=== PATIENT | female | born 1955 | race Hispanic/Latino ===

== ENCOUNTER 2020-04-27 06:41 | Day surgery (SDC) | payer MEDICARE ==
[2020-04-27] MEDS ORDERED: ASPIRIN EC 325 MG TAB PO NR (06:59)
[2020-04-27] MEDS ORDERED: SODIUM CHLORIDE 0.9% 500 ML 500 ML IV SCH (07:00)
[2020-04-27 07:20] LABS: Basophils # (Auto) 0.1 K/mm3 (0.0-0.1); Eosinophils # (Auto) 0.1 K/mm3 (0.0-0.4); Eosinophils % (Auto) 1.4 % (0.0-4.3); Hemoglobin 13.1 gm/dl (10.1-14.3); Lymphocytes # (Auto) 1.8 K/mm3 (1.2-5.4); Lymphocytes % (Auto) 23.5 % (13.4-35.0); Mean Corpuscular HGB Conc 35 % (30-34); Mean Corpuscular Volume 94 fl (79-97); Monocytes # (Auto) 0.5 K/mm3 (0.0-0.8); Monocytes % (Auto) 7.1 % (0.0-7.3); Platelet Count 257 K/mm3 (140-440); Red Blood Count 3.96 M/mm3 (3.65-5.03); Red Cell Distribution Width 13.1 % (13.2-15.2)
[2020-04-27 07:30] LABS: INR 0.87 (0.87-1.13)
[2020-04-27 07:31] LABS: Calcium 9.6 mg/dL (8.4-10.2)
[2020-04-27] MEDS ORDERED: HEPARIN/NS 5000 UNIT/500ML 1,000 ML IR ONE (08:01)
[2020-04-27] MEDS: fentaNYL 100 MCG/2 ML INJ ONE ×2 (08:48→08:54)
[2020-04-27] MEDS: LIDOCAINE (2%) 20 MG/1 ML VIAL 20 ML MDV INFILTRATI ONE ×4 (08:49→09:08)
[2020-04-27] MEDS: MIDAZOLAM 2 MG/2 ML INJ ONE ×5 (08:49→09:23)
[2020-04-27] MEDS: HEPARIN 10,000 UNITS/10 ML VIAL ONE ×2 (08:50→08:59)
[2020-04-27] MEDS: VERAPAMIL 5 MG/2 ML INJ ONE ×2 (08:50→08:59)
[2020-04-27] MEDS: NITROGLYCERIN SYRINGE 3 ML ONE ×2 (08:51→08:59)
[2020-04-27] MEDS ORDERED: LIDOCAINE (2%) 20 MG/1 ML VIAL 20 ML MDV INFILTRATI ONE (09:02)
--- NOTE | 2020-04-27 09:45 | Cardiac Catherization Report ---
REFERRING PHYSICIAN: Cliff Feng MD INDICATION FOR PROCEDURE: The patient is a very pleasant 64-year-old female, who presents with chest pain, abnormal nuclear stress test and known CAD, referred for left heart catheterization. Risks, benefits, alternatives discussed at length prior to obtaining informed consent. The patient had known complication of a previous left heart catheterization and the right groin. We used the right radial approach. The patient has a known history of significant back pain and anxiety. Risks, benefits, alternatives discussed prior to obtaining informed consent. PROCEDURE IN DETAIL: The patient was brought to the catheterization lab in a postabsorptive state, prepped and draped in sterile fashion. Daniel's test in right hand was normal. A 2 mL of 2% lidocaine used to anesthetize the right wrist. A standard 6-Fijian hydrophilic sheath used to cannulate the right radial artery via modified Seldinger technique. All exchanges performed to exchange a J-tip guidewire, it should be noted that she initially spasmed the artery. We gave intra-arterial nitro. We started to get access in the left groin. The patient spasm improved and thus, we did not end up getting access in the left groin and proceeded with a radial approach. A JL3.5 catheter used to engage the left main. No dampening or ventricularization. Cineangiography performed in multiple projections. JR4 catheter used to cross the aortic valve under fluoroscopic guidance. Left ventriculography performed in 30 RAYMOND and 30 ANNA projections via hand injections, catheter flushed. Manual pullback performed with continuous pressure monitoring. Catheter used to engage the right coronary. No dampening or ventricularization. Cineangiography performed in all projections. Next, catheter removed from the body of wire, sheath removed. Manual pressure used to achieve hemostasis. I directly supervised the administration of moderate sedation with fentanyl and versed from 845 to 930am. DATA: Aortic pressure is 130/60, LV pressure is 130, LVEDP of 8 mmHg. Left ventriculography reveals normal systolic performance with estimated ejection fraction of 55-60%. No evidence of aortic stenosis. CORONARY ANATOMY: This is a left dominant system. The right coronary is small, nondominant. Diffuse moderate small vessel disease distally. No obstructive disease noted proximally or in the mid segment. Left main is moderate-sized vessel, no significant disease, bifurcates left anterior descending and left circumflex. Left circumflex is a large vessel, courses AV groove, gives off a left-sided PDA and several OM trunks, scattered luminal irregularities, but no significant disease identified. LAD is a moderate-sized vessel, courses anterior intergroove, wraps around the apex. Mild diffuse disease with a maximal narrowing of 25% in the mid segment, but no obstructive disease identified. ARTIS 3 flow throughout the coronary tree. CONCLUSIONS: 1. Mild nonobstructive disease and diffuse moderate small vessel disease distally in this left dominant system. No significant obstructive disease identified. 2. Normal LV function, estimated ejection fraction of 55-60%. 3. No evidence of aortic stenosis. 4. Normal LVEDP. Recommend optimization of medical therapy, continue current medications. Followup with us in the office. At this point, continue current medications, needs to be more active. Optimize diet and lifestyle. Have her follow up with me in the office. Results of the procedure were explained at length to her via telephone. Standard radial care. JOB# [id number] PRATIK/DAI PITTMAN
--- NOTE | 2020-04-27 10:20 | Short Stay Summary ---
Short Stay Documentation Date of service: 04/27/20 - History H&P: obtained from office - Allergies and Medications Current Medications: Allergies celecoxib [From Celebrex] Allergy (Verified 03/23/14 08:03) Hives tramadol Allergy (Verified 04/27/20 06:59) Burning in mouth Home Medications Medication Instructions Recorded Confirmed Last Taken Type ALPRAZolam [Xanax TAB] 1 mg PO PRN PRN 03/23/14 04/27/20 04/26/20 History Aspirin EC [Ecotrin] 325 mg PO DAILY 03/23/14 04/27/20 04/26/20 History Escitalopram Oxalate [Lexapro] 20 mg PO DAILY 03/23/14 04/27/20 04/26/20 History HYDROcodone/Acetaminop 7.5-325 7.5 - 325 mg PO PRN PRN 03/23/14 04/27/20 04/26/20 History [[place] 7.5-325 mg per 15 ML] Simvastatin 40 mg PO HS 03/23/14 04/27/20 04/26/20 History carvediloL [Coreg] 6.25 mg PO BID 03/23/14 04/27/20 04/26/20 History Gabapentin [Neurontin] 300 mg PO BID 04/27/20 04/27/20 04/26/20 History Lisinopril/Hydrochlorothiazide 1 each PO DAILY 04/27/20 04/27/20 04/26/20 History [Zestoretic 10-12.5 mg Tablet] cloNIDine [Catapres] 0.1 mg PO BID 04/27/20 04/27/20 04/26/20 History Active Medications Sodium Chloride (Nacl 0.9% 500 Ml) 500 mls @ 50 mls/hr IV DIRECT JULIEN Stop: 04/27/20 16:59 Last Admin: 04/27/20 08:09 Dose: 50 mls/hr Documented by: - Brief post op/procedure progress note Date of procedure: 04/27/20 Pre-op diagnosis: Chest Pain, Abnormal Nuclear Stress Test, CAD Post-op diagnosis: same Procedure: [facility]- see dictated cath report Anesthesia: local Estimated blood loss: none Condition: stable - Disposition Condition at discharge: Good Disposition: [id number] TO HOME OR SELFCARE - Discharge Diagnoses (1) Mild CAD Status: Chronic (2) Hyperlipemia Status: Chronic (3) Hypertension Status: Chronic Short Stay Discharge Plan Activity: advance as tolerated Diet: low fat, low cholesterol, low salt Wound: open to air, keep clean and dry, per your surgeon's advice Follow up with: JACK LO MD [Primary Care Provider] - 7 Days ELIS CARTER MD [Staff Physician] - 7 Days (Follow up with Dr Mandi Carter at our [place] office on 05/18/2020 at 3pm.)
[2020-04-27 13:34] VITALS: BP 122/53
== END 2020-04-27 13:00 | disposition home or self-care (01) ==
LOC: CATHLABREC 06:41
PROVIDERS: ATTEND Internal Medicine
DX: R07.89 Other chest pain (principal); R94.39 Abnormal result of other cardiovascular function study; I25.10 Atherosclerotic heart disease of native coronary artery without angina pectoris; F17.210 Nicotine dependence, cigarettes, uncomplicated; E78.5 Hyperlipidemia, unspecified; I10 Essential (primary) hypertension; M19.90 Unspecified osteoarthritis, unspecified site; F32.9 Major depressive disorder, single episode, unspecified; F41.9 Anxiety disorder, unspecified; Z98.890 Other specified postprocedural states; Z88.8 Allergy status to other drugs, medicaments and biological substances; Z79.899 Other long term (current) drug therapy; Z79.82 Long term (current) use of aspirin; G62.9 Polyneuropathy, unspecified; Z90.710 Acquired absence of both cervix and uterus; Z87.442 Personal history of urinary calculi; Z87.440 Personal history of urinary (tract) infections
CPT/HCPCS: 36415; 80048; 85025; 85610; 85730; 93005; 93458; 99156; 99157; C1894; J1644; J2250; J3010; J7040; Q9967